=== PATIENT | female | born 1990 | race Two or more races ===

== ENCOUNTER 2019-12-16 11:47 | Emergency (ER) | payer MEDICAID, OTHER ==
[~2019-12-16] VITALS: Ht 152.4 cm; Wt 63.0 kg
[2019-12-16 12:49] LABS: Urine WBC None Seen /hpf (0 - 5)
[2019-12-16 13:00] LABS: Urine Bacteria NONE SEEN /hpf (None Seen); Urine Blood Negative /uL (Negative); Urine Specific Gravity 1.017 (1.001-1.035)
[2019-12-16 14:06] VITALS: BP 107/64
== END 2019-12-16 15:12 | disposition home or self-care (01) ==
LOC: ER 11:47
DX: O26.891 Other specified pregnancy related conditions, first trimester (principal); R10.32 Left lower quadrant pain; Z3A.12 12 weeks gestation of pregnancy
CPT/HCPCS: 36415; 76801; 81001; 84702

== ENCOUNTER 2022-07-26 14:30 | Emergency (ER) | payer MEDICAID, OTHER ==
[~2022-07-26] VITALS: Ht 154.9 cm; Wt 57.7 kg
[2022-07-26 14:38] VITALS: BP 112/69
[2022-07-26] MEDS ORDERED: IBUPROFEN 600 MG TAB PO ONE (16:00)
[2022-07-26] MEDS ORDERED: IBUP600T27 PO (16:09)
== END 2022-07-26 16:20 | disposition home or self-care (01) ==
LOC: ER 14:30
DX: S83.91XA Sprain of unspecified site of right knee, initial encounter (principal); W10.8XXA Fall (on) (from) other stairs and steps, initial encounter; Y93.89 Activity, other specified; Y92.89 Other specified places as the place of occurrence of the external cause; Y99.8 Other external cause status
CPT/HCPCS: 73562